=== PATIENT | male | born 1970 | race Caucasian/White ===

== ENCOUNTER 2021-01-06 18:00 | Observation (INO) ==
[2021-01-06] MEDS ORDERED: 0.9 % Sodium Chloride 1,000 ML IVC ONE ×2 (18:14→19:30)
[2021-01-06 18:27] LABS: Basophils # 0.1 K/mcL (0.0-0.2); Basophils % 0.5 %; Eosinophils % 0.4 %; Hematocrit 45.5 % (37.5-50.1); Hemoglobin 15.3 g/dL (12.9-16.9); Immature Granulocytes % 0.9 % (0-4); Lymphocytes # 2.4 K/mcL (0.6-4.6); Lymphocytes % 21.5 %; Mean Corpuscular HGB Conc 33.6 g/dL (31.6-35.5); Mean Corpuscular Hemoglobin 31.4 pg (28.0-33.3); Mean Corpuscular Volume 93.2 fL (83.0-100.0); Mean Platelet Volume 11.5 fL (9.4-12.4); Monocytes % 9.2 %; Neutrophils # 7.6 K/mcL (1.6-8.9); Platelet Count 235 K/mcL (140-400); Red Blood Count 4.88 M/mcL (4.19-5.50); Red Cell Distribution Width 13.6 % (11.5-14.5); Segmented Neutrophils % 67.5 %; White Blood Count 11.3 K/mcL (4.3-11.1)
[2021-01-06 18:29] LABS: Eosinophils # 0.1 K/mcL (0.0-0.6)
[2021-01-06 18:45] LABS: BUN/Creatinine Ratio 9 (6-26); Blood Urea Nitrogen 22 mg/dL (6-20); Calcium 10.1 mg/dL (8.6-10.3); Carbon Dioxide 20 mEq/L (23-29); Chloride 99 mEq/L (98-107); Glucose 96 mg/dL (70-105); Osmolality,Calculated 279 (280-300); Potassium 4.3 mEq/L (3.5-5.1); Sodium 133 mEq/L (136-145); Valproate < 4 mcg/mL (50-100); eGFR For African Americans 35 (> 60); eGFR For Non-African Americans 29 (> 60)
[2021-01-06] MEDS ORDERED: 0.9 % Sodium Chloride 1,000 ML IVC SCH (19:00)
[2021-01-06] MEDS ORDERED: Mag Hydrox/Al Hydrox/Simeth 30 ML UDC PO PRN (20:47)
[2021-01-06] MEDS ORDERED: Ondansetron ODT 4 MG TAB.RAPDIS SL PRN (20:47)
[2021-01-06] MEDS ORDERED: Melatonin 3 MG TABLET PO PRN (20:47)
[2021-01-06] MEDS ORDERED: MOM Conc 10 ML UD.LIQ PO PRN (20:47)
[2021-01-06] MEDS ORDERED: Naloxone 0.4 MG/ML INJ IVP PRN (20:47)
[2021-01-06] MEDS ORDERED: Albuterol 2.5 MG/3 ML NEBULIZER IH PRN (20:47)
[2021-01-06] MEDS ORDERED: traZODone 50 MG TABLET PO SCH (21:15)
[2021-01-06] MEDS ORDERED: rOPINIRole 1 MG TABLET PO SCH (21:15)
[2021-01-06] MEDS: 0.9 % Sodium Chloride 1,000 ML IVC SCH (21:50)
[2021-01-07] MEDS: 0.9 % Sodium Chloride 1,000 ML IVC SCH (05:55)
[2021-01-07 07:00] VITALS: BP 120/60; PULSE 72; RESP 17; TEMP 97.7; O2SAT 95
[2021-01-07 07:29] LABS: BUN/Creatinine Ratio 15 (6-26); Blood Urea Nitrogen 18 mg/dL (6-20); Calcium 8.5 mg/dL (8.6-10.3); Carbon Dioxide 23 mEq/L (23-29); Chloride 106 mEq/L (98-107); Glucose 114 mg/dL (70-105); Osmolality,Calculated 289 (280-300); Potassium 3.9 mEq/L (3.5-5.1); Sodium 138 mEq/L (136-145); eGFR For African Americans > 60 (> 60); eGFR For Non-African Americans > 60 (> 60)
[2021-01-07] MEDS ORDERED: Gabapentin 400 MG CAPSULE PO SCH (09:00)
[2021-01-07] MEDS ORDERED: Divalproex (12 HR) 250 MG TABLET PO SCH (09:00)
[2021-01-07] MEDS ORDERED: allopurinoL 300 MG TABLET PO SCH (09:00)
== END 2021-01-07 11:30 | disposition home or self-care (01) ==
LOC: INPPIK 18:00 → EMEROOPIK 18:00 → INPPIK 20:59
PROVIDERS: ADMIT Internal Medicine; ATTEND Internal Medicine